=== PATIENT | male | born 2000 | race Hispanic/Latino ===

== ENCOUNTER 2020-06-09 06:01 | Emergency (ER) | payer SELFPAY ==
[2020-06-09 06:32] LABS: APPEARANCE,URINE CLEAR (CLEAR); BILIRUBIN,URINE NEGATIVE (NEGATIVE); COLOR,URINE YELLOW (YELLOW); GLUCOSE, URINE (UA) NEGATIVE (NEGATIVE); KETONES,URINE NEGATIVE (NEGATIVE); LEUKOCYTE ESTERASE ,URINE NEGATIVE (NEGATIVE); NITRATE,URINE NEGATIVE (NEGATIVE); OCCULT BLOOD,URINE LARGE (NEGATIVE); PH,URINE 6.5 (5.0-8.0); PROTEIN,URINE NEGATIVE (NEGATIVE); UROBILINOGEN,URINE 0.2 mg/dL (0.2-1.0)
[2020-06-09] MEDS ORDERED: KETOROLAC 30MG VIAL (30MG/ML) ONE (06:36)
[2020-06-09 06:48] LABS: BACTERIA,URINE Few /HPF (None Seen); SQUAMOUS EPITHELIAL CELL,UR None Seen /HPF (0-2); WBC,URINE 0-1 /HPF (0-1)
[2020-06-09 07:17] LABS: BASOPHILS % (AUTO) 0.3 % (0.0-5.0); EOSINOPHILS % (AUTO) 2.6 % (0.0-8.0); HEMATOCRIT 41.6 % (42-54); LYMPHOCYTES % (AUTO) 28.8 % (21.0-51.0); MEAN CORPUSCULAR HEMOGLOBIN 30.3 pg (27.0-33.0); MEAN CORPUSCULAR HGB CONC 33.9 g/dL (32.0-36.0); MEAN CORPUSCULAR VOLUME 89.5 fL (79-99); MONOCYTES % (AUTO) 4.8 % (3.0-13.0); NEUTROPHILS % (AUTO) 63.3 % (40.0-77.0); PLATELET COUNT (AUTO) 256 K/uL (130-400); RED BLOOD CELL COUNT(AUTO) 4.65 MIL/uL (4.50-6.20); RED CELL DISTRIBUTION WIDTH 11.8 % (11.0-15.5); WHITE BLOOD COUNT (AUTO) 6.3 K/uL (4.8-10.8)
[2020-06-09 07:21] LABS: CREATININE 1.2 mg/dL (0.5-1.5); POTASSIUM 3.6 mmol/L (3.5-5.1)
[2020-06-09] MEDS ORDERED: ONDANSETRON 4MG INJ ONE (07:24)
[2020-06-09] MEDS ORDERED: MORPHINE 4 MG SYG ONE (07:24)
[2020-06-09] MEDS ORDERED: IOHEXOL-350 75 ML VIAL IV ONE (07:49)
[2020-06-09] MEDS ORDERED: 0.9%NACL 1000ML 1,000 ML IV ONE (07:51)
== END 2020-06-09 10:25 | disposition home or self-care (01) ==
LOC: EDH 06:01 → EDBD 06:01 → EDH 10:25
DX: N23 Unspecified renal colic (principal); Q61.2 Polycystic kidney, adult type; R03.0 Elevated blood-pressure reading, without diagnosis of hypertension; Z87.891 Personal history of nicotine dependence
CPT/HCPCS: 36415; 74178; 80048; 81001; 85025; 96361; 96374; 96375; 99284; J1885; J2270; J2405; J7030; Q9967

== ENCOUNTER 2021-01-14 13:43 | Emergency (ER) | payer SELFPAY ==
[~2021-01-14] VITALS: Ht 177.8 cm; Wt 99.8 kg
[2021-01-14 13:44] VITALS: BP 134/101
[2021-01-14] MEDS ORDERED: CEFTRIAXONE 1G VIAL IM ONE (14:00)
[2021-01-14] MEDS ORDERED: PHENAZOPYRIDINE HCL 200 MG TABLET PO ONE (14:00)
[2021-01-14 14:05] LABS: BILIRUBIN,URINE Negative (NEGATIVE); COLOR,URINE Orange (YELLOW); GLUCOSE, URINE (UA) Negative (NEGATIVE); KETONES,URINE Negative (NEGATIVE); LEUKOCYTE ESTERASE ,URINE Trace (NEGATIVE); NITRATE,URINE Negative (NEGATIVE); OCCULT BLOOD,URINE Large (NEGATIVE); PROTEIN,URINE Trace mg/dL (NEGATIVE)
[2021-01-14] MEDS ORDERED: LIDOCAINE HCL-MPF 1% 2ML VIAL ONE (14:05)
[2021-01-14 14:13] LABS: RBC,URINE TNTC /HPF (0-1)
[2021-01-14 14:14] LABS: BACTERIA,URINE Rare /HPF (None Seen); SQUAMOUS EPITHELIAL CELL,UR Rare /HPF (0-2)
[2021-01-14 14:15] LABS: APPEARANCE,URINE CLOUDY (CLEAR)
[2021-01-14 14:27] LABS: BASOPHILS % (AUTO) 0.2 % (0.0-5.0); EOSINOPHILS % (AUTO) 1.2 % (0.0-8.0); HEMATOCRIT 40.3 % (42-54); LYMPHOCYTES % (AUTO) 12.1 % (21.0-51.0); MEAN CORPUSCULAR HEMOGLOBIN 29.8 pg (27.0-33.0); MEAN CORPUSCULAR VOLUME 87.6 fL (79-99); MONOCYTES % (AUTO) 4.5 % (3.0-13.0); NEUTROPHILS % (AUTO) 81.7 % (40.0-77.0); PLATELET COUNT (AUTO) 258 K/uL (130-400); WHITE BLOOD COUNT (AUTO) 10.1 K/uL (4.8-10.8)
[2021-01-14] MEDS ORDERED: KETOROLAC 30MG VIAL (30MG/ML) IV ONE (14:30)
[2021-01-14] MEDS ORDERED: 0.9%NACL 1000ML 1,000 ML IV ONE (14:30)
[2021-01-14] MEDS ORDERED: PROMETHAZINE HCL 25 MG/ML 1ML AMPULE IM ONE (14:30)
[2021-01-14 14:39] LABS: CARBON DIOXIDE 24 mmol/L (21-32); CHLORIDE 104 mmol/L (101-111); CREATININE 1.1 mg/dL (0.5-1.5); GLOMERULAR FILTR. RATE CALC 89 mL/min (>60); GLUCOSE,RANDOM 110 mg/dL (70-105); POTASSIUM 3.8 mmol/L (3.5-5.1); SODIUM SERUM 141 mmol/L (136-145); UREA NITROGEN, BLOOD 15 mg/dL (7-18)
[2021-01-14 14:44] LABS: ALANINE AMINOTRANSFERASE 27 U/L (12-78); ALBUMIN 4.3 g/dL (3.5-5.0); ASPARTATE AMINOTRANSFERASE 14 U/L (10-37); BILIRUBIN,TOTAL 0.4 mg/dL (0.2-1.0); TOTAL PROTEIN, SERUM 7.7 g/dL (6.0-8.3)
[2021-01-14 14:56] LABS: CRP QUANTITATIVE < 2.00 mg/L (0.00-9.0)
[2021-01-14] MEDS ORDERED: PHEN-847 PO (15:38)
[2021-01-14] MEDS ORDERED: CEPH500B PO (15:38)
[2021-01-14] MEDS ORDERED: ONDA4TAB10 PO (15:38)
== END 2021-01-14 15:58 | disposition home or self-care (01) ==
LOC: EDH 13:43
DX: N20.0 Calculus of kidney (principal); N39.0 Urinary tract infection, site not specified; N28.1 Cyst of kidney, acquired; R31.9 Hematuria, unspecified; Z79.899 Other long term (current) drug therapy
CPT/HCPCS: 36415; 74176; 80053; 81001; 85025; 86140; J0696; J1885; J2550; J3490